=== PATIENT | female | born 1990 | race Hispanic/Latino ===

== ENCOUNTER 2022-11-08 16:47 | Emergency (ER) | payer SELFPAY ==
[2022-11-08] MEDS ORDERED: Metoclopramide HCl 10 MG/2 ML VIAL ONE (18:07)
[2022-11-08] MEDS ORDERED: Sodium Chloride 0.9% 1,000 ML ONE (18:07)
[2022-11-08] MEDS ORDERED: Ketorolac Tromethamine 30 MG/ML VIAL ONE (18:07)
== END 2022-11-08 18:55 | disposition home or self-care (01) ==
LOC: MADERS 16:47
DX: R51.9 Headache, unspecified (principal); M25.561 Pain in right knee
CPT/HCPCS: 96361; 96372; 96374; J1885; J2765; J7050

== ENCOUNTER 2022-11-29 18:09 | Outpatient (CLI) | payer OTHER | END 2022-11-29 18:10 | disposition home or self-care (01) | LOC: MADRAD 18:09 | PROVIDERS: ATTEND Registered Nurse | DX: M25.561 Pain in right knee (principal) ==